=== PATIENT | male | born 1995 | race Caucasian/White ===

== ENCOUNTER 2018-01-25 13:14 | Emergency (ER) | payer OTHER ==
--- NOTE | 2018-01-25 14:22 | EDM.PDOC ---
<Babatunde Horn - Last Filed: 01/25/18 14:17> ED HPI GENERAL MEDICAL PROBLEM - General Chief Complaint: Lower Extremity Injury/Pain Stated Complaint: POSS KNEE INJURY Time Seen by Provider: 01/25/18 13:17 Source of Information: Reports: Patient History Limitations: Reports: No Limitations - History of Present Illness INITIAL COMMENTS - FREE TEXT/NARRATIVE: The patient presents from the [place] area for right knee pain. He says on he stepped in a hole at work and hurt his right knee. He went to the occupational health clinic in [place] and they did x-rays. He was told the x- rays looked good. He has pain when walking on it and he feels like his knee is going to give out. Onset: Sudden Duration: Week(s): (1) Location: Reports: Lower Extremity, Right (Knee) Quality: Reports: Sharp Severity: Moderate Improves with: Reports: Immobilization Worsens with: Reports: Movement Associated Symptoms: Reports: No Other Symptoms Right Knee Pain Score (Numeric/FACES): 8 - Related Data Allergies Allergy/AdvReac Type Severity Reaction Status Date / Time No Known Allergies Allergy Verified 01/25/18 13:30 Home Meds: Home Meds Acetaminophen/HYDROcodone [Friant 325-5 MG] 1 tab PO Q6H PRN #8 tablet 01/25/18 [ Rx] Past Medical History Respiratory History: Reports: Asthma, Other (See Below) Other Respiratory History: asthma when he was a kid- no episode of asthma aatck since then - Infectious Disease History Infectious Disease History: Reports: Chicken Pox Social & Family History - Family History Family Medical History: Noncontributory - Tobacco Use Smoking Status *Q: Never Smoker - Caffeine Use Caffeine Use: Reports: Coffee - Recreational Drug Use Recreational Drug Use: No Review of Systems - Review of Systems Review Of Systems: See Below Constitutional: Reports: No Symptoms Eyes: Reports: No Symptoms Ears: Reports: No Symptoms Nose: Reports: No Symptoms Mouth/Throat: Reports: No Symptoms Respiratory: Reports: No Symptoms Cardiovascular: Reports: No Symptoms GI/Abdominal: Reports: No Symptoms Genitourinary: Reports: No Symptoms Musculoskeletal: Reports: Other (Right knee pain and swelling) Skin: Reports: No Symptoms ED EXAM, GENERAL - Physical Exam Exam: See Below Exam Limited By: No Limitations General Appearance: Alert, No Apparent Distress Ears: Normal External Exam Nose: Normal Inspection Head: Atraumatic, Normocephalic Neck: Normal Inspection Respiratory/Chest: No Respiratory Distress Extremities: Other (Moderate edema to the right knee. Pain upon palpation to the anterior knee. He had pain when checking his ligaments and they seemed stable. Good sensation and pulses distally.) Course - Vital Signs Last Recorded V/S: Last Vital Signs Temp 97.1 F 01/25/18 13:25 Pulse 63 01/25/18 13:25 Resp 16 01/25/18 13:25 BP 131/93 H 01/25/18 13:25 Pulse Ox 98 01/25/18 13:25 - Orders/Labs/Meds Orders: Active Orders 24 hr Category Date Time Status Knee wo Cont Rt [CT] Stat Exams 01/25/18 13:42 Taken - Re-Assessments/Exams Free Text/Narrative Re-Assessment/Exam: 01/25/18 14:[address] of his knee. Departure - Departure Disposition: Home, Self-Care 01 Clinical Impression: Swollen R knee, Sprain of knee Lateral subluxation of right patella Qualifiers: Encounter type: initial encounter Qualified Code(s): S83.011A - Lateral subluxation of right patella, initial encounter Right knee sprain Qualifiers: Encounter type: initial encounter Involved ligament of knee: unspecified collateral ligament Qualified Code(s): S83.401A - Sprain of unspecified collateral ligament of right knee, initial encounter - Discharge Information Prescriptions: Acetaminophen/HYDROcodone [Friant 325-5 MG] 1 tab PO Q6H PRN #8 tablet PRN Reason: Pain (Severe 7-10) Instructions: Knee Sprain, Adult, [id number], How to Use a Knee Brace Referrals: PCP,None [Primary Care Provider] - Galo Luis MD [Physician] - Basil Church MD [Physician] - Forms: ED Department Discharge, ED Return to Work/School Form Additional Instructions: You are to be nonweightbearing toe-touch only for balance using crutches to ambulate. Only take the knee immobilizer off to bathe and/or ice. Elevate when able to reduce any swelling and pain. Utilize Tylenol and ibuprofen in alternating fashion for pain. For severe pain take Friant one tab every 6 hours as needed. Do not take Friant and Tylenol together. Do not drive while taking the Friant. Follow-up with occupational med provider for modification of job duties if needed. You may return to work light duty as long as you are able to elevate and ice. Call and make an appt with Orthopedic Surgeon of your choice to be evaluated in 7 to 10 days for reevaluation. Please return to the E.D. for any new or worsening symptoms. <Hilton Pierre O - Last Filed: 01/25/18 23:02> Course - Re-Assessments/Exams Free Text/Narrative Re-Assessment/Exam: I have assumed care of the patient from Dr. Horn. CT of the right lower extremity without IV contrast impression: There is a mild lateral subluxation of the patella. Suprapatellar joint fluid is present. Bony density is noted adjacent to the superior aspect of the tibia. This may represent a small fracture. No definite acute fracture of the tibia or femur as image. MRI of the knee would be of further benefit to evaluate cruciate ligament and meniscus and medial collateral ligaments. I have ordered knee immobilizer and crutches. Patient has an appt with Dr. Gomes Orthopedic Surgeon in [place] in 1.5 wks. Will discharge home with instructions as documented. I did order MRI of the knee on a outpatient basis. Departure - Departure Time of Disposition: 16:10 Condition: Good
--- NOTE | 2018-01-27 10:50 | CT ---
CT right knee Technique: Multiple axial sections were obtained through the right knee. Reconstructed coronal and sagittal images were obtained. Comparison: No prior knee exam. Findings: Small joint effusion is seen. Small bony density is seen off the medial patella which is well-corticated and old. Patella is slightly shifted laterally suggesting patellar tracking problems. Two small adjacent bony densities are seen posterior to the knee which likely represent small chip or avulsion fractures which are most likely old. Small calcification is seen adjacent to the fibular head which is also felt to be old. I do not see any acute fracture line. Impression: 1. Findings felt compatible with old injury. 2. Small joint effusion. 3. Slightly abnormal position of the patella raising the possibility of patellar tracking problems. 4. No definite acute fracture is seen. If internal derangement needs to be excluded, MRI is then recommended. Diagnostic code #3 MTDD
== END 2018-01-25 16:35 | disposition home or self-care (01) ==
LOC: JD.ED 13:14
DX: S83.011A Lateral subluxation of right patella, initial encounter (principal); S83.401A Sprain of unspecified collateral ligament of right knee, initial encounter; J45.909 Unspecified asthma, uncomplicated; W17.2XXA Fall into hole, initial encounter
CPT/HCPCS: 73700-26-RT; 73700-RT; 99283; 99284-25